=== PATIENT | female | born 1985 | race Caucasian/White ===

== ENCOUNTER 2018-06-14 15:57 | Emergency (ER) | payer OTHER ==
[2018-06-14] MEDS ORDERED: SODIUM CHLORIDE 0.9% 1,000 ML IV ONE (16:19)
[2018-06-14 16:39] LABS: Basophils % (A) 0 %; Eosinophils % (A) 0 %; HCT 34.5 % (34.0-46.0); HGB 11.7 gm/dL (11.4-16.0); Lymphocytes % (A) 15 %; MCH 28.8 pg (25.0-35.0); MCHC 33.9 g/dL (31.0-37.0); MCV 85.1 fL (80.0-100.0); Mean Platelet Volume 6.7; Monocytes # (A) 0.3 k/uL (0-1.0); Monocytes % (A) 4 %; Neutrophils # (A) 5.1 k/uL (1.3-7.7); Neutrophils % (A) 80 %; Platelet Count 200 k/uL (150-450); RBC 4.06 m/uL (3.80-5.40); WBC 6.4 k/uL (3.8-10.6)
[2018-06-14] MEDS ORDERED: LIDOCAINE/EPINEPHR/TETRACAINE 5 ML BOTTLE TOPICAL ONE (16:39)
--- NOTE | 2018-06-14 16:39 | ED ---
Fall HPI - General Chief Complaint: Fall Stated Complaint: Seizure Time Seen by Provider: 06/14/18 16:16 Source: patient, EMS Mode of arrival: EMS - History of Present Illness Initial Comments: Patient is a 32 year old female who presents with a CC of a fall while at [place]. she is there for benzo withdrawal. patient states that she was using xanax and klonepin. the patient states that the last time she used benzos recreationally was last friday, since then she has been on a klonepin taper. it was witnessed today that the patient rolled off her top bunk and landed on the floor. she does not recall the incident. she states that she has had falls and "blacked out" before from benzo withdrawal but has never had a seizure. she does not have a history of seizure disorder. patient states that in addition to the benzo taper, she is currently on phenobarbital. - Related Data Home Medications Medication Instructions Recorded Confirmed Acetaminophen Tab [Tylenol Tab] 650 mg PO Q4H PRN 06/14/18 06/14/18 Calcium/Magnesium 2 tab PO TID PRN 06/14/18 06/14/18 Chlorpheniramine Maleate 4 mg PO Q4H PRN 06/14/18 06/14/18 [Chlor-Trimeton] Ibuprofen [Motrin] 600 mg PO Q6H PRN 06/14/18 06/14/18 Methadone HCl [Methadone Intensol] 65 mg PO DAILY 06/14/18 06/14/18 Multivitamins, Thera [Multivitamin 1 tab PO DAILY 06/14/18 06/14/18 (formulary)] PHENobarbital See Taper PO DIRECTED 06/14/18 06/14/18 Thiamine [Vitamin B-1] 100 mg PO DAILY 06/14/18 06/14/18 carBAMazepine [TEGretol] 200 mg PO TID 06/14/18 06/14/18 Allergies Allergy/AdvReac Type Severity Reaction Status Date / Time No Known Allergies Allergy Verified 06/14/18 17:16 Review of Systems ROS Statement: Those systems with pertinent positive or pertinent negative responses have been documented in the HPI. ROS Other: All systems not noted in ROS Statement are negative. Musculoskeletal: Reports: back pain Past Medical History Past Medical History: No Reported History History of Any Multi-Drug Resistant Organisms: None Reported Past Surgical History: No Surgical Hx Reported Past Psychological History: Anxiety, Depression Smoking Status: Current some day smoker Past Alcohol Use History: None Reported Past Drug Use History: Marijuana, Prescription Drug Abuse General Exam Limitations: no limitations General appearance: alert, in no apparent distress Head exam: Present: atraumatic, normocephalic, other (small chin laceration measuring about 3cm in length. ) Eye exam: Present: normal appearance, PERRL, EOMI, other (madriasis noted on exam. ) ENT exam: Present: normal exam, mucous membranes moist Neck exam: Present: normal inspection, tenderness Respiratory exam: Present: normal lung sounds bilaterally. Absent: respiratory distress, wheezes Cardiovascular Exam: Present: regular rate, normal rhythm GI/Abdominal exam: Present: soft. Absent: distended, tenderness Rectal exam: Present: deferred Extremities exam: Present: normal inspection Back exam: Present: normal inspection, other (mild tenderness to palpation of the spine. ) Neurological exam: Present: alert, oriented X3 Psychiatric exam: Present: normal affect, normal mood Skin exam: Present: warm, dry, intact (piloerection noted on exam. ) Course Vital Signs 06/14/18 06/14/18 16:04 18:00 Temperature 98.3 F Pulse Rate 88 90 Respiratory 18 18 Rate Blood Pressure 112/76 119/92 O2 Sat by Pulse 97 98 Oximetry Procedures - Laceration Laceration #1 Consent Obtained: verbal consent Time Out Performed: Yes Indication: laceration Site: face Description: linear Depth: simple, single layer Anesthetic Used: lidocaine 1%, with epi Anesthesia Technique: local infiltration Pre-repair: wound explored, irrigated extensively Type of Sutures: nylon Size of Sutures: 6-0 Technique: simple, interrupted Patient Tolerated Procedure: well, no complications Medical Decision Making - Medical Decision Making Patient presents with a CC of a fall, chin lac, and neck pain. on initial evaluation, VS stable, patient in no acute distress. she states she does not have a history of seizure nor has she experienced withdrawal seizure before. she states she has "blacked out" from withdrawal before. at this time, the patient does not remember the event. she does not appear post ictal and she is AO x 3. patient is noted to have dilated pupils and piloerection on exam consistent with withdrawal, though she is currently on a benzo taper and is on phenobarb. at this time, we will monitor patient for seizure activity. she is refusing a c-collar, but is agreeable to a towel roll. she will be evaluated with CT head, neck, face, and spine. patient given a L if IVF. EKG performed at 1637 shows NSR with a rate of 82 BPM. EKG otherwise unremarkable. 6:43PM lab evaluation of this patient is unremarkable. CT evaluation of the head, neck , face, and spine show no acute fracture. chin laceration repaired per procedure note, it meausures about 3cm in length. at this time, patient stable for discharge back to [place] to continue her taper and withdrawal medications. no seizure activity while being observed in the ED. patient agreeable with the care plan. she was instructed to follow up with pcp in 1-2 days, return to the ED if sx worsen or change. she was instructed to have sutures removed in 7 days. - Lab Data Result diagrams: 06/14/18 16:20 06/14/18 16:20 Lab Results 06/14/18 06/14/18 06/14/18 Range/Units 16:20 16:20 17:50 WBC 6.4 (3.8-10.6) k/uL RBC 4.06 (3.80-5.40) m/uL Hgb 11.7 (11.4-16.0) gm/dL Hct 34.5 (34.0-46.0) % MCV 85.1 (80.0-100.0) fL MCH 28.8 (25.0-35.0) pg MCHC 33.9 (31.0-37.0) g/dL RDW 13.0 (11.5-15.5) % Plt Count 200 (150-450) k/uL Neutrophils % 80 % Lymphocytes % 15 % Monocytes % 4 % Eosinophils % 0 % Basophils % 0 % Neutrophils # 5.1 (1.3-7.7) k/uL Lymphocytes # 1.0 (1.0-4.8) k/uL Monocytes # 0.3 (0-1.0) k/uL Eosinophils # 0.0 (0-0.7) k/uL Basophils # 0.0 (0-0.2) k/uL Sodium 137 (137-145) mmol/L Potassium 4.2 (3.5-5.1) mmol/L Chloride 103 (98-107) mmol/L Carbon Dioxide 22 (22-30) mmol/L Anion Gap 12 mmol/L BUN 10 (7-17) mg/dL Creatinine 0.70 (0.52-1.04) mg/dL Est GFR (CKD-EPI)AfAm >90 (>60 ml/min/1.73 sqM) Est GFR (CKD-EPI)NonAf >90 (>60 ml/min/1.73 sqM) Glucose 88 (74-99) mg/dL Calcium 9.5 (8.4-10.2) mg/dL Magnesium 2.0 (1.6-2.3) mg/dL Total Bilirubin 0.4 (0.2-1.3) mg/dL AST 53 H (14-36) U/L ALT 32 (9-52) U/L Alkaline Phosphatase 66 (38-126) U/L Total Protein 8.2 (6.3-8.2) g/dL Albumin 4.9 (3.5-5.0) g/dL HCG, Qual Not Detected Urine Color Yellow Urine Appearance Clear (Clear) Urine pH 5.5 (5.0-8.0) Ur Specific [place] 1.007 (1.001-1.035) Urine Protein Negative (Negative) Urine Glucose (UA) Negative (Negative) Urine Ketones 2+ H (Negative) Urine Blood Negative (Negative) Urine Nitrite Negative (Negative) Urine Bilirubin Negative (Negative) Urine Urobilinogen <2.0 (<2.0) mg/dL Ur Leukocyte Esterase Negative (Negative) Disposition Clinical Impression: Fall Disposition: HOME SELF-CARE Condition: Good Instructions: Laceration (DC) Is patient prescribed a controlled substance at d/c from ED?: No Referrals: Nonstaff,Physician [Primary Care Provider] - 1-2 days Madina Bragg MD [STAFF PHYSICIAN] - 1-2 days
[2018-06-14 16:50] LABS: ALT 32 U/L (9-52); AST 53 U/L (14-36); Albumin 4.9 g/dL (3.5-5.0); Alkaline Phosphatase 66 U/L (38-126); Anion Gap 12 mmol/L; Blood Urea Nitrogen 10 mg/dL (7-17); Calcium 9.5 mg/dL (8.4-10.2); Carbon Dioxide 22 mmol/L (22-30); Chloride 103 mmol/L (98-107); Glucose 88 mg/dL (74-99); Potassium 4.2 mmol/L (3.5-5.1); Sodium 137 mmol/L (137-145); Total Bilirubin 0.4 mg/dL (0.2-1.3); Total Protein 8.2 g/dL (6.3-8.2)
[2018-06-14 16:59] LABS: HCG,Qualitative Serum Not Detected
--- NOTE | 2018-06-14 17:44 | CT ---
EXAMINATION TYPE: CT brain cspine wo con DATE OF EXAM: 06/14/2018 COMPARISON: None HISTORY: Fall from top bunk bed. Possible seizure. Head, neck and back pain. CT DLP: 1766.4 (total for brain, csp and facial bones) mGycm Automated exposure control for dose reduction was used. TECHNIQUE: CT scan of the head and cervical spine are performed without contrast. FINDINGS: Ventricles and sulci appear normal. There is no mass effect nor midline shift. There is n o sign of intracranial hemorrhage. The calvarium is intact. Cervical vertebra have normal spacing and alignment. Posterior elements are intact. Skull base is int act. There is no evidence of a fracture. IMPRESSION: Normal CT scan of the brain. Normal CT scan cervical spine.
--- NOTE | 2018-06-14 17:45 | CT ---
EXAMINATION TYPE: CT facial bones wo con DATE OF EXAM: 06/14/2018 COMPARISON: None HISTORY: Fall from top bunk bed. Possible seizure. Head, neck and back pain. CT DLP: 1766.4 (total for brain, csp and facial bones) mGycm Automated exposure control for dose reduction was used. TECHNIQUE: CT scan of the sinuses is performed without contrast, axial images are obtained, coronal r eformatted images are also reviewed. FINDINGS: The orbital margins are intact. There is no evidence of blowout fracture. The mandibular ri ng is intact. Temporomandibular joints appear normal. Zygomatic arches appear normal. Maxilla is inta ct. Nasal bone is intact. There is no evidence of retro-orbital mass. There is fairly normal aeration of the paranasal sinuses. There is bilateral patency of the ostiomeatal complex. IMPRESSION: Normal CT scan of the facial bones. No fracture.
--- NOTE | 2018-06-14 17:49 | CT ---
EXAMINATION TYPE: CT thor lumbar spine wo con DATE OF EXAM: 06/14/2018 COMPARISON: None HISTORY: Fall from top bunk bed. Possible seizure. Head, neck and back pain. CT DLP: 871.3 mGycm Automated exposure control for dose reduction was used. FINDINGS: Thoracic and lumbar vertebra have normal spacing and alignment. Posterior elements are intact. There is no paraspinal mass. There is no compression fracture. Visualized sacrum appears normal. IMPRESSION: NORMAL THORACIC SPINE. NORMAL LUMBAR SPINE. NO FRACTURE.
[2018-06-14 18:04] LABS: Appearance,Urine Clear (Clear); Bilirubin,Urine Negative (Negative); Blood,Urine Negative (Negative); Color,Urine Yellow; Glucose,Urine (UA) Negative (Negative); Ketones,Urine 2+ (Negative); Leukocyte Esterase,Urine Negative (Negative); Nitrite,Urine Negative (Negative); PH, Urine 5.5 (5.0-8.0); Protein,Urine Negative (Negative); Specific Gravity,Urine 1.007 (1.001-1.035); Urobilinogen,Urine <2.0 mg/dL (<2.0)
[2018-06-14] MEDS ORDERED: LIDOCAINE 1%-EPI 1:100,000 30 ML VIAL SQ ONE (18:14)
[2018-06-14 19:07] VITALS: BP 111/74; PULSE 103; RESP 16; TEMP 98.7
== END 2018-06-14 19:06 | disposition home or self-care (01) ==
LOC: EC 15:57
DX: S01.81XA Laceration without foreign body of other part of head, initial encounter (principal); R56.9 Unspecified convulsions; F41.9 Anxiety disorder, unspecified; F17.200 Nicotine dependence, unspecified, uncomplicated; Z79.899 Other long term (current) drug therapy; W06.XXXA Fall from bed, initial encounter
CPT/HCPCS: 12013; 36415; 70450; 70486; 72125; 72128; 72131; 80053; 81003; 83735; 84703; 85025; 93005; 96360; 96361; 99284